=== PATIENT | female | born 1990 | race Caucasian/White ===

== ENCOUNTER 2017-03-02 14:49 | Emergency (ER) | payer SELFPAY ==
[~2017-03-02] VITALS: Ht 160 cm; Wt 72.6 kg
[2017-03-02 15:29] VITALS: BP 100/73
--- NOTE | 2017-03-02 20:19 | NUR ---
PATIENT LEFT WITHOUT BEING SEEN BY DR. DUNCAN. NO FURTHER CARE PROVIDED FOR PATIENT.
== END 2017-03-02 20:14 | disposition left against medical advice (07) ==
LOC: MED 14:49
DX: R10.9 Unspecified abdominal pain (principal); Z53.21 Procedure and treatment not carried out due to patient leaving prior to being seen by health care provider

== ENCOUNTER 2017-03-16 18:26 | Emergency (ER) | payer SELFPAY ==
[~2017-03-16] VITALS: Ht 160 cm; Wt 78.0 kg
[2017-03-16 18:39] VITALS: BP 96/54
[2017-03-16] MEDS ORDERED: NACL 0.9% 1,000 ML IV ONE ×2 (19:19→20:45)
[2017-03-16] MEDS ORDERED: MORPHINE SULFATE 4 MG/ML SYR IVP ONE ×2 (19:20→20:45)
[2017-03-16] MEDS ORDERED: ONDANSETRON 4 MG/2 ML VIAL IVP ONE ×2 (19:20→20:45)
--- NOTE | 2017-03-16 20:04 | NUR ---
PT TAKEN TO BED 8
--- NOTE | 2017-03-16 20:09 | NUR ---
Dr. Pang evaluating patient at bedside.
[2017-03-16] MEDS ORDERED: KETOROLAC 30 MG/ML VIAL IM ONE (20:20)
--- NOTE | 2017-03-16 20:30 | NUR ---
PATIENT PRESENTS TO ED WITH C/O ABD/BACK PAIN . PT DENIES N/V/D; SKIN IS PINK/WARM/DRY; AAOX4 WITH EVEN AND STEADY GAIT; LUNGS CLEAR BL; HR EVEN AND REGULAR; PT DENIES ANY FEVER, CP, SOB, OR COUGH AT THIS TIME; PATIENT STATES PAIN OF 8/10 AT THIS TIME; VSS; PATIENT POSITIONED FOR COMFORT; HOB ELEVATED; BEDRAILS UP X2; BED DOWN. ER MD MADE AWARE OF PT STATUS.
--- NOTE | 2017-03-16 21:11 | NUR ---
PT TAKEN TO CT
--- NOTE | 2017-03-16 21:28 | NUR ---
PT RETURN FROM CT
--- NOTE | 2017-03-16 22:12 | NUR ---
Liseth terry in [facility] - 03/16/17 at 2230 by ANUEL PT RETURN FROM CT
--- NOTE | 2017-03-16 22:40 | NUR ---
Patient discharged with v/s stable. Written and verbal after care instructions given and explained. Patient verbalized understanding. Ambulatory with steady gait. All questions addressed prior to discharge. Advised to follow up with PMD.
[2017-03-16 22:54] VITALS: BP 98/56
== END 2017-03-16 22:40 | disposition home or self-care (01) ==
LOC: MED 18:26
DX: R10.32 Left lower quadrant pain (principal); R11.2 Nausea with vomiting, unspecified; R19.7 Diarrhea, unspecified; Z88.0 Allergy status to penicillin; Z90.89 Acquired absence of other organs
CPT/HCPCS: 36415; 74176; 80053; 81025; 83690; 85025; 96361; 96374; 96375; 99285; J2270; J2405; J7030

== ENCOUNTER 2017-04-26 22:45 | Emergency (ER) | payer OTHER ==
[~2017-04-26] VITALS: Ht 160 cm; Wt 74.8 kg
[2017-04-26 22:50] VITALS: BP 114/66
--- NOTE | 2017-04-26 23:04 | NUR ---
PT TAKEN TO BED 7
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
--- NOTE | 2017-04-26 23:18 | NUR ---
Dr. Luis evaluating patient at bedside.
--- NOTE | 2017-04-26 23:37 | NUR ---
X-Ray at bedside.
--- NOTE | 2017-04-26 23:55 | NUR ---
REPORT RECEIVED FROM DEANNA WOMACK
[2017-04-27 01:38] VITALS: BP 114/66
== END 2017-04-27 01:39 | disposition home or self-care (01) ==
LOC: MED 22:45
DX: M25.531 Pain in right wrist (principal); Z88.0 Allergy status to penicillin; Z90.89 Acquired absence of other organs; F17.200 Nicotine dependence, unspecified, uncomplicated; V49.49XA Driver injured in collision with other motor vehicles in traffic accident, initial encounter; Y93.I9 Activity, other involving external motion; Y92.488 Other paved roadways as the place of occurrence of the external cause; Y99.8 Other external cause status
CPT/HCPCS: 29125; 73110; 73562; 99284; Q0092